=== PATIENT | male | born 1950 | race African-American/Black ===

== ENCOUNTER 2020-04-18 13:53 | Inpatient (IN) ==
[2020-04-18] MEDS ORDERED: NALOXONE 0.4 MG/ML VIAL ONE (14:00)
[2020-04-18 15:09] LABS: Basophils % 0.4 % (0.0-0.8); Eosinophils # 0.2 10*3/uL (0.0-0.87); Eosinophils % 4.1 % (0.00-10.9); Hematocrit 25.6 VOL% (42.0-52.0); Hemoglobin 8.3 GM/DL (14.0-18.0); Immature Granulocytes % 0.4 %; Immature Granulocytes Absolute 0.02 #; Lymphocytes # 1.6 10*3/uL (1.4-4.0); Lymphocytes % 29.3 % (21.2-54.2); Mean Corpuscular HGB Conc 32.4 GM/DL (32-36); Mean Corpuscular Volume 104.1 FL (87-102); Mean Platelet Volume 10.1 FL (9.6-12.0); Monocytes % 13.8 % (1.7-12.7); Platelet Count 129 T/CUMM (130-400); Red Blood Count 2.46 MC/CUMM (3.8-5.5); Red Cell Distribution Width 16.8 % (9.3-17.3); White Blood Count 5.4 T/CUMM (4-12)
[2020-04-18 15:28] LABS: Albumin 3.3 G/DL (3.4-5.0); Bilirubin,Total 0.4 MG/DL (0.2-1.0); Calcium 9.6 MG/DL (8.5-10.1); Osmolality,Calculated 277.8 MOS/KG (273-304); Total Protein 7.9 G/DL (6.4-8.3)
[2020-04-18 15:33] LABS: INR 1.1
[2020-04-18 15:40] LABS: Partial Thromboplastin Time 184.1 SECS (23.9-33.8)
[2020-04-18] MEDS ORDERED: GLUCAGON 1 MG VIAL IM PRN (16:42)
[2020-04-18] MEDS ORDERED: DEXTROSE 50% 25 GM/50 ML VIAL IV PRN (16:42)
[2020-04-18] MEDS ORDERED: ONDANSETRON 4 MG/2 ML VIAL IV PRN (16:42)
[2020-04-18] MEDS ORDERED: SODIUM CHLORIDE 0.9% 500 ML IV ONE (18:00)
[2020-04-18 19:06] LABS: Hematocrit 24.6 VOL% (42.0-52.0); Hemoglobin 7.9 GM/DL (14.0-18.0)
[2020-04-18] MEDS: TAMSULOSIN 0.4 MG CAPSULE PO SCH (21:50)
[2020-04-18] MEDS: METOPROLOL TARTRATE 25 MG TABLET PO SCH (21:52)
[2020-04-18 23:10] LABS: Hematocrit 22.4 VOL% (42.0-52.0); Hemoglobin 7.4 GM/DL (14.0-18.0)
[2020-04-19 06:00] LABS: Hematocrit 23.1 VOL% (42.0-52.0); Hemoglobin 7.7 GM/DL (14.0-18.0)
[2020-04-19 06:05] LABS: Basophils % 0.5 % (0.0-0.8); Eosinophils # 0.2 10*3/uL (0.0-0.87); Eosinophils % 4.3 % (0.00-10.9); Hematocrit 23.6 VOL% (42.0-52.0); Hemoglobin 7.6 GM/DL (14.0-18.0); Immature Granulocytes % 0.5 %; Immature Granulocytes Absolute 0.02 #; Lymphocytes # 1.4 10*3/uL (1.4-4.0); Mean Corpuscular HGB Conc 32.2 GM/DL (32-36); Mean Corpuscular Volume 104.4 FL (87-102); Mean Platelet Volume 10.5 FL (9.6-12.0); Neutrophils % 49.7 % (38.7-73.9); Platelet Count 125 T/CUMM (130-400); Red Blood Count 2.26 MC/CUMM (3.8-5.5); Red Cell Distribution Width 16.4 % (9.3-17.3); White Blood Count 4.4 T/CUMM (4-12)
[2020-04-19 06:30] LABS: INR 1.1; PT Patient Result 11.3 SECS (9.8-11.9)
[2020-04-19 06:40] LABS: Albumin 3.1 G/DL (3.4-5.0); Bilirubin,Total 1.1 MG/DL (0.2-1.0); Calcium 9.3 MG/DL (8.5-10.1); Osmolality,Calculated 278.8 MOS/KG (273-304); Risk Ratio 3.36; Thyroid Stimulating Hormone 0.629 uIU/ml (0.358-3.74); Total Protein 7.1 G/DL (6.4-8.3); VLDL CHOLESTEROL 23.4 MG/DL
[2020-04-19] MEDS: METOPROLOL TARTRATE 25 MG TABLET PO SCH ×2 (08:35→21:38)
[2020-04-19] MEDS: BICALUTAMIDE 50 MG TABLET PO SCH (09:42)
[2020-04-19] MEDS: PANTOPRAZOLE 40 MG VIAL IV SCH (09:42)
[2020-04-19] MEDS: SEVELAMER CARBONATE 800 MG TABLET PO SCH ×3 (09:43→16:04)
[2020-04-19 11:21] LABS: Hematocrit 22.2 VOL% (42.0-52.0); Hemoglobin 7.3 GM/DL (14.0-18.0)
[2020-04-19] MEDS ORDERED: SODIUM CHLORIDE 0.9% 1,000 ML IV PRN (12:04)
[2020-04-19] MEDS ORDERED: ACETAMINOPHEN 325 MG TABLET PO PRN (15:54)
[2020-04-19] MEDS: TAMSULOSIN 0.4 MG CAPSULE PO SCH (21:38)
[2020-04-20 05:44] LABS: Basophils % 0.4 % (0.0-0.8); Eosinophils # 0.2 10*3/uL (0.0-0.87); Eosinophils % 3.3 % (0.00-10.9); Hemoglobin 7.4 GM/DL (14.0-18.0); Immature Granulocytes % 0.2 %; Immature Granulocytes Absolute 0.01 #; Lymphocytes # 1.8 10*3/uL (1.4-4.0); Lymphocytes % 38.9 % (21.2-54.2); Mean Corpuscular HGB Conc 33.6 GM/DL (32-36); Mean Corpuscular Volume 101.9 FL (87-102); Mean Platelet Volume 10.2 FL (9.6-12.0); Monocytes % 13.3 % (1.7-12.7); Neutrophils % 43.9 % (38.7-73.9); Platelet Count 138 T/CUMM (130-400); Red Blood Count 2.16 MC/CUMM (3.8-5.5); Red Cell Distribution Width 15.9 % (9.3-17.3); White Blood Count 4.6 T/CUMM (4-12)
[2020-04-20 05:53] LABS: INR 1.1; PT Patient Result 11.9 SECS (9.8-11.9); Partial Thromboplastin Time 26.1 SECS (23.9-33.8)
[2020-04-20] MEDS ORDERED: SODIUM PHOSPHATE ENEMA 133 ML BOTTLE RECTAL ONE (06:00)
[2020-04-20 06:33] LABS: Calcium 9.1 MG/DL (8.5-10.1); Osmolality,Calculated 283.8 MOS/KG (273-304)
[2020-04-20] MEDS: SODIUM CHLORIDE 0.9% 1,000 ML IV SCH (08:00)
[2020-04-20] MEDS ORDERED: propofoL 200 MG/20 ML VIAL IV ONE (09:00)
[2020-04-20] MEDS ORDERED: LIDOCAINE 2% 5 ML VIAL ONE (09:00)
[2020-04-20] MEDS ORDERED: PHENYLEPHRINE 1 MG/10 ML SYRINGE IV ONE (09:00)
[2020-04-20] MEDS: PANTOPRAZOLE 40 MG VIAL IV SCH (10:08)
[2020-04-20] MEDS: SEVELAMER CARBONATE 800 MG TABLET PO SCH ×3 (10:09→17:23)
[2020-04-20] MEDS: BICALUTAMIDE 50 MG TABLET PO SCH (10:09)
[2020-04-20] MEDS: METOPROLOL TARTRATE 25 MG TABLET PO SCH ×2 (11:00→21:36)
[2020-04-20] MEDS: SUCRALFATE 1 GM/10 ML UDCUP RECTAL SCH ×2 (12:53→21:36)
[2020-04-20] MEDS ORDERED: HEPARIN 10,000 UNIT/10 ML VIAL IV PRN (14:05)
[2020-04-20 20:13] LABS: Hematocrit 29.7 VOL% (42.0-52.0); Hemoglobin 10.1 GM/DL (14.0-18.0)
[2020-04-20] MEDS: TAMSULOSIN 0.4 MG CAPSULE PO SCH (21:36)
[2020-04-21 04:53] LABS: Hematocrit 28.4 VOL% (42.0-52.0); Hemoglobin 9.6 GM/DL (14.0-18.0); Red Blood Count 2.87 MC/CUMM (3.8-5.5); White Blood Count 6.8 T/CUMM (4-12)
[2020-04-21 04:54] LABS: Basophils % 0.4 % (0.0-0.8); Eosinophils # 0.2 10*3/uL (0.0-0.87); Eosinophils % 2.4 % (0.00-10.9); Immature Granulocytes % 0.3 %; Immature Granulocytes Absolute 0.02 #; Lymphocytes # 1.4 10*3/uL (1.4-4.0); Lymphocytes % 20.9 % (21.2-54.2); Mean Corpuscular HGB Conc 33.8 GM/DL (32-36); Mean Platelet Volume 10.1 FL (9.6-12.0); Monocytes % 11.8 % (1.7-12.7); Neutrophils % 64.2 % (38.7-73.9); Platelet Count 126 T/CUMM (130-400); Red Cell Distribution Width 16.8 % (9.3-17.3)
[2020-04-21 05:18] LABS: Albumin 3.1 G/DL (3.4-5.0); Bilirubin,Total 0.9 MG/DL (0.2-1.0); Calcium 9.6 MG/DL (8.5-10.1); Osmolality,Calculated 280.5 MOS/KG (273-304); Total Protein 7.4 G/DL (6.4-8.3)
[2020-04-21 05:19] LABS: Hypochromasia 1+; Microcytosis 1+; Platelet Estimate Normal
[2020-04-21 06:05] LABS: INR 1.1; PT Patient Result 11.9 SECS (9.8-11.9); Partial Thromboplastin Time 28.5 SECS (23.9-33.8)
[2020-04-21] MEDS: PANTOPRAZOLE 40 MG VIAL IV SCH (09:17)
[2020-04-21] MEDS: METOPROLOL TARTRATE 25 MG TABLET PO SCH (09:18)
[2020-04-21] MEDS: BICALUTAMIDE 50 MG TABLET PO SCH (09:18)
[2020-04-21] MEDS: SEVELAMER CARBONATE 800 MG TABLET PO SCH ×2 (09:18→11:53)
[2020-04-21] MEDS: SUCRALFATE 1 GM/10 ML UDCUP RECTAL SCH (09:21)
[2020-04-21 11:40] VITALS: BP 100/68
[2020-04-21] MEDS: SODIUM CHLORIDE 0.9% 1,000 ML IV SCH ×3 (13:01→13:02)
== END 2020-04-21 13:10 | disposition home or self-care (01) | DRG 377 ==
LOC: EDBD → EDUNIT# → N.EDINP 13:53 → N.ED 13:53 → N.3E 17:31
PROVIDERS: ADMIT Internal Medicine; ATTEND Internal Medicine

== ENCOUNTER 2020-05-14 19:02 | Observation (INO) ==
[2020-05-14] MEDS ORDERED: PANTOPRAZOLE 40 MG VIAL IV STA (20:02)
[2020-05-14] MEDS ORDERED: ONDANSETRON 4 MG/2 ML VIAL IV STA (20:02)
[2020-05-14 20:18] LABS: Basophils % 0.7 % (0.0-0.8); Eosinophils # 0.2 10*3/uL (0.0-0.87); Eosinophils % 2.7 % (0.00-10.9); Hematocrit 26.2 VOL% (42.0-52.0); Immature Granulocytes % 0.3 %; Immature Granulocytes Absolute 0.02 #; Lymphocytes # 1.8 10*3/uL (1.4-4.0); Lymphocytes % 30.5 % (21.2-54.2); Mean Corpuscular HGB Conc 30.5 GM/DL (32-36); Mean Corpuscular Volume 102.7 FL (87-102); Monocytes % 9.9 % (1.7-12.7); Neutrophils % 55.9 % (38.7-73.9); Platelet Count 169 T/CUMM (130-400); Red Blood Count 2.55 MC/CUMM (3.8-5.5); Red Cell Distribution Width 16.1 % (9.3-17.3); White Blood Count 5.9 T/CUMM (4-12)
[2020-05-14 20:40] LABS: INR 1.1; PT Patient Result 11.8 SECS (9.8-11.9)
[2020-05-14 20:41] LABS: Bilirubin,Total 0.5 MG/DL (0.2-1.0); Calcium 9.2 MG/DL (8.5-10.1); Osmolality,Calculated 275.5 MOS/KG (273-304); Total Protein 7.5 G/DL (6.4-8.3)
[2020-05-14] MEDS ORDERED: ACETAMINOPHEN 325 MG TABLET PO PRN (23:27)
[2020-05-14] MEDS ORDERED: ONDANSETRON 4 MG/2 ML VIAL IV PRN (23:27)
[2020-05-15 01:58] LABS: Hematocrit 25.8 VOL% (42.0-52.0); Hemoglobin 7.9 GM/DL (14.0-18.0)
[2020-05-15 04:34] LABS: Basophils % 0.4 % (0.0-0.8); Eosinophils # 0.2 10*3/uL (0.0-0.87); Eosinophils % 3.8 % (0.00-10.9); Hematocrit 25.8 VOL% (42.0-52.0); Hemoglobin 7.9 GM/DL (14.0-18.0); Immature Granulocytes % 0.2 %; Immature Granulocytes Absolute 0.01 #; Lymphocytes # 1.3 10*3/uL (1.4-4.0); Lymphocytes % 29.5 % (21.2-54.2); Mean Corpuscular HGB Conc 30.6 GM/DL (32-36); Mean Corpuscular Volume 103.2 FL (87-102); Mean Platelet Volume 9.5 FL (9.6-12.0); Monocytes % 11.5 % (1.7-12.7); Neutrophils % 54.6 % (38.7-73.9); Platelet Count 150 T/CUMM (130-400); Red Cell Distribution Width 15.9 % (9.3-17.3); White Blood Count 4.5 T/CUMM (4-12)
[2020-05-15 04:35] LABS: Hematocrit 25.2 VOL% (42.0-52.0); Hemoglobin 7.8 GM/DL (14.0-18.0)
[2020-05-15 04:53] LABS: Calcium 8.6 MG/DL (8.5-10.1); Osmolality,Calculated 278.4 MOS/KG (273-304)
[2020-05-15 08:54] LABS: Basophils % 0.6 % (0.0-0.8); Eosinophils # 0.2 10*3/uL (0.0-0.87); Hematocrit 29.2 VOL% (42.0-52.0); Hemoglobin 8.8 GM/DL (14.0-18.0); Immature Granulocytes % 0.4 %; Immature Granulocytes Absolute 0.02 #; Lymphocytes # 1.6 10*3/uL (1.4-4.0); Lymphocytes % 32.6 % (21.2-54.2); Mean Corpuscular HGB Conc 30.1 GM/DL (32-36); Mean Corpuscular Volume 104.3 FL (87-102); Mean Platelet Volume 9.4 FL (9.6-12.0); Monocytes % 10.7 % (1.7-12.7); Neutrophils % 52.7 % (38.7-73.9); Platelet Count 181 T/CUMM (130-400); Red Cell Distribution Width 15.8 % (9.3-17.3)
[2020-05-15 09:13] LABS: Calcium 9.6 MG/DL (8.5-10.1); Osmolality,Calculated 273.8 MOS/KG (273-304)
[2020-05-15 11:34] LABS: Hematocrit 27.3 VOL% (42.0-52.0); Hemoglobin 8.2 GM/DL (14.0-18.0)
[2020-05-15 17:11] LABS: Hematocrit 25.2 VOL% (42.0-52.0); Hemoglobin 7.9 GM/DL (14.0-18.0)
[2020-05-16 04:52] LABS: Basophils % 0.5 % (0.0-0.8); Eosinophils # 0.2 10*3/uL (0.0-0.87); Hematocrit 25.3 VOL% (42.0-52.0); Hemoglobin 7.8 GM/DL (14.0-18.0); Immature Granulocytes % 0.2 %; Immature Granulocytes Absolute 0.01 #; Lymphocytes # 1.4 10*3/uL (1.4-4.0); Lymphocytes % 31.9 % (21.2-54.2); Mean Corpuscular HGB Conc 30.8 GM/DL (32-36); Mean Corpuscular Volume 100.8 FL (87-102); Mean Platelet Volume 9.6 FL (9.6-12.0); Monocytes % 13.1 % (1.7-12.7); Neutrophils % 50.3 % (38.7-73.9); Platelet Count 171 T/CUMM (130-400); Red Blood Count 2.51 MC/CUMM (3.8-5.5); Red Cell Distribution Width 15.1 % (9.3-17.3); White Blood Count 4.3 T/CUMM (4-12)
[2020-05-16 05:28] LABS: Calcium 8.8 MG/DL (8.5-10.1); Osmolality,Calculated 280.4 MOS/KG (273-304)
[2020-05-16] MEDS ORDERED: SODIUM PHOSPHATE ENEMA 133 ML BOTTLE RECTAL ONE (06:00)
[2020-05-16] MEDS ORDERED: SODIUM CHLORIDE 0.9% 1,000 ML IV SCH (08:00)
[2020-05-16] MEDS ORDERED: LIDOCAINE 2% 5 ML VIAL ONE (09:00)
[2020-05-16] MEDS ORDERED: propofoL 200 MG/20 ML VIAL IV ONE (09:00)
[2020-05-16 09:55] VITALS: BP 127/86
[2020-05-16] MEDS: SUCRALFATE 1 GM/10 ML UDCUP RECTAL SCH ×2 (11:47→20:48)
[2020-05-17 04:36] LABS: Basophils % 0.4 % (0.0-0.8); Eosinophils # 0.2 10*3/uL (0.0-0.87); Eosinophils % 2.8 % (0.00-10.9); Hematocrit 26.2 VOL% (42.0-52.0); Hemoglobin 8.1 GM/DL (14.0-18.0); Immature Granulocytes % 0.2 %; Immature Granulocytes Absolute 0.01 #; Lymphocytes # 1.6 10*3/uL (1.4-4.0); Lymphocytes % 30.8 % (21.2-54.2); Mean Corpuscular HGB Conc 30.9 GM/DL (32-36); Mean Corpuscular Volume 101.2 FL (87-102); Mean Platelet Volume 9.6 FL (9.6-12.0); Monocytes % 12.1 % (1.7-12.7); Neutrophils % 53.7 % (38.7-73.9); Platelet Count 144 T/CUMM (130-400); Red Blood Count 2.59 MC/CUMM (3.8-5.5); Red Cell Distribution Width 15.1 % (9.3-17.3); White Blood Count 5.3 T/CUMM (4-12)
[2020-05-17 05:17] LABS: Calcium 8.8 MG/DL (8.5-10.1); Osmolality,Calculated 283.1 MOS/KG (273-304)
== END 2020-05-17 11:25 | disposition home or self-care (01) ==
LOC: EDBD → EDUNIT# → N.EDINP 19:02 → N.ED 19:02 → N.CC 23:48
PROVIDERS: ADMIT Family Medicine; ATTEND Family Medicine
PROC: COLONHP (2020-05-16 08:05)

== ENCOUNTER 2020-09-01 10:15 | Inpatient (IN) ==
[2020-09-01] MEDS ORDERED: ACETAMINOPHEN 500 MG TABLET ONE (10:48)
[2020-09-01] MEDS ORDERED: SODIUM CHLORIDE 0.9% 500 ML IV STA (10:48)
[2020-09-01] MEDS ORDERED: ACETAMINOPHEN 500 MG TABLET PO STA (10:53)
[2020-09-01 10:57] LABS: Basophils % 0.1 % (0.0-0.8); Hematocrit 35.6 VOL% (42.0-52.0); Hemoglobin 11.3 GM/DL (14.0-18.0); Immature Granulocytes % 0.6 %; Immature Granulocytes Absolute 0.06 #; Lymphocytes % 10.7 % (21.2-54.2); Mean Corpuscular HGB Conc 31.7 GM/DL (32-36); Mean Corpuscular Volume 93.9 FL (87-102); Mean Platelet Volume 9.9 FL (9.6-12.0); Monocytes % 6.1 % (1.7-12.7); Neutrophils % 82.5 % (38.7-73.9); Platelet Count 153 T/CUMM (130-400); Red Blood Count 3.79 MC/CUMM (3.8-5.5); Red Cell Distribution Width 16.1 % (9.3-17.3); White Blood Count 9.5 T/CUMM (4-12)
[2020-09-01 11:24] LABS: Alanine Aminotransferase 28 U/L (16-61); Albumin 3.3 G/DL (3.4-5.0); Alkaline Phosphatase 66 U/L (45-117); Aspartate Amino Transferase 48 U/L (0-37); Blood Urea Nitrogen 52 MG/DL (7-18); Carbon Dioxide 22 MMOL/L (21-32); Estimated Glom Filtration Rate 3 ML/MIN; Glucose 84 MG/DL (74-106); Potassium 4.9 MMOL/L (3.5-5.1); Sodium 136 MMOL/L (136-145)
[2020-09-01] MEDS ORDERED: cefTRIAXone 1,000 MG in SODIUM CHLORIDE 0.9% 100 ML IV STA (12:19)
[2020-09-01] MEDS ORDERED: ONDANSETRON 4 MG/2 ML VIAL IV PRN (12:20)
[2020-09-01] MEDS: cefTRIAXone 1,000 MG in SYRINGE 1 EACH IV SCH (15:21)
[2020-09-01] MEDS: DOCUSATE SODIUM 100 MG CAPSULE PO SCH (21:28)
[2020-09-02] MEDS: LORazepam 2 MG/1 ML VIAL IV PRN ×3 (02:00→23:47)
[2020-09-02] MEDS: PANTOPRAZOLE 40 MG TABLET PO SCH (08:31)
[2020-09-02] MEDS: DOCUSATE SODIUM 100 MG CAPSULE PO SCH ×2 (08:31→20:10)
[2020-09-02] MEDS: amLODIPine 5 MG TABLET PO SCH (08:31)
[2020-09-02] MEDS: SODIUM CHLORIDE 0.9% 1,000 ML IV SCH ×2 (10:04→12:10)
[2020-09-02] MEDS ORDERED: VANCOMYCIN INJ 500 MG in SODIUM CHLORIDE 0.9% 100 ML IV PRN (12:35)
[2020-09-02] MEDS: cefTRIAXone 1,000 MG in SYRINGE 1 EACH IV SCH (12:50)
[2020-09-02] MEDS ORDERED: VANCOMYCIN INJ 1,500 MG in SODIUM CHLORIDE 0.9% 500 ML IV ONE (14:00)
[2020-09-02 15:16] LABS: Osmolality,Calculated 288.2 MOS/KG (273-304); Potassium 5.8 MMOL/L (3.5-5.1)
[2020-09-02] MEDS: ACETAMINOPHEN 325 MG TABLET PO PRN (16:05)
[2020-09-02] MEDS ORDERED: SODIUM POLYSTYRENE SULFATE 15 GM/60 ML BOTTLE PO ONE (17:00)
[2020-09-03] MEDS: amLODIPine 5 MG TABLET PO SCH (08:10)
[2020-09-03] MEDS: DOCUSATE SODIUM 100 MG CAPSULE PO SCH ×2 (08:10→21:13)
[2020-09-03] MEDS: PANTOPRAZOLE 40 MG TABLET PO SCH (08:11)
[2020-09-03] MEDS: cefTRIAXone 1,000 MG in SYRINGE 1 EACH IV SCH (12:16)
[2020-09-03] MEDS ORDERED: HEPARIN 10,000 UNIT/10 ML VIAL IV SCH (15:00)
[2020-09-03] MEDS ORDERED: VANCOMYCIN INJ 500 MG in SODIUM CHLORIDE 0.9% 100 ML IV ONE (17:00)
[2020-09-03] MEDS: SODIUM CHLORIDE 0.9% 1,000 ML IV SCH (21:12)
[2020-09-03] MEDS: ACETAMINOPHEN 325 MG TABLET PO PRN (21:13)
[2020-09-04] MEDS: METOPROLOL TARTRATE 25 MG TABLET PO SCH ×3 (00:29→22:23)
[2020-09-04 06:15] LABS: Basophils % 0.3 % (0.0-0.8); Eosinophils # 0.2 10*3/uL (0.0-0.87); Eosinophils % 2.3 % (0.00-10.9); Hemoglobin 11.6 GM/DL (14.0-18.0); Immature Granulocytes % 0.7 %; Immature Granulocytes Absolute 0.05 #; Lymphocytes # 1.1 10*3/uL (1.4-4.0); Lymphocytes % 15.7 % (21.2-54.2); Mean Corpuscular HGB Conc 32.2 GM/DL (32-36); Mean Corpuscular Volume 90.9 FL (87-102); Monocytes % 10.2 % (1.7-12.7); Neutrophils % 70.8 % (38.7-73.9); Platelet Count 125 T/CUMM (130-400); Red Blood Count 3.96 MC/CUMM (3.8-5.5); White Blood Count 7.1 T/CUMM (4-12)
[2020-09-04 06:35] LABS: Lymphocytes 12 % (20-55); Segmented Neutrophils 75 % (50-85); Total Cells Counted 100
[2020-09-04 06:47] LABS: Albumin 2.7 G/DL (3.4-5.0); Bilirubin,Total 0.4 MG/DL (0.2-1.0); Osmolality,Calculated 280.5 MOS/KG (273-304); Potassium 5.2 MMOL/L (3.5-5.1); Total Protein 8.5 G/DL (6.4-8.3)
[2020-09-04] MEDS: SODIUM CHLORIDE 0.9% 1,000 ML IV SCH (07:20)
[2020-09-04] MEDS: PANTOPRAZOLE 40 MG TABLET PO SCH (10:38)
[2020-09-04] MEDS: traMADol 50 MG TABLET PO SCH ×2 (10:38→22:23)
[2020-09-04] MEDS: DOCUSATE SODIUM 100 MG CAPSULE PO SCH ×2 (10:39→22:23)
[2020-09-04] MEDS: SEVELAMER CARBONATE 800 MG TABLET PO SCH ×3 (10:39→16:10)
[2020-09-04] MEDS: amLODIPine 5 MG TABLET PO SCH (10:39)
[2020-09-04] MEDS: ACETAMINOPHEN 325 MG TABLET PO PRN (22:23)
[2020-09-05] MEDS: ACETAMINOPHEN 325 MG TABLET PO PRN (04:59)
[2020-09-05] MEDS: traMADol 50 MG TABLET PO SCH ×3 (05:00→22:40)
[2020-09-05 06:00] LABS: Basophils % 0.3 % (0.0-0.8); Eosinophils # 0.2 10*3/uL (0.0-0.87); Eosinophils % 2.4 % (0.00-10.9); Hematocrit 31.8 VOL% (42.0-52.0); Hemoglobin 10.6 GM/DL (14.0-18.0); Immature Granulocytes % 1.3 %; Immature Granulocytes Absolute 0.09 #; Lymphocytes % 14.4 % (21.2-54.2); Mean Corpuscular HGB Conc 33.3 GM/DL (32-36); Mean Corpuscular Volume 88.8 FL (87-102); Mean Platelet Volume 10.7 FL (9.6-12.0); Monocytes % 10.9 % (1.7-12.7); Neutrophils % 70.7 % (38.7-73.9); Platelet Count 146 T/CUMM (130-400); Red Blood Count 3.58 MC/CUMM (3.8-5.5); White Blood Count 7.1 T/CUMM (4-12)
[2020-09-05] MEDS ORDERED: LIDOCAINE 1% 20 ML VIAL ONE (06:21)
[2020-09-05] MEDS ORDERED: BUPIVACAINE MPF 0.25% 30 ML VIAL ONE (06:21)
[2020-09-05] MEDS ORDERED: LIDOCAINE 2%/EPI 20 ML VIAL ONE (06:21)
[2020-09-05 06:24] LABS: Albumin 2.6 G/DL (3.4-5.0); Bilirubin,Total 0.5 MG/DL (0.2-1.0); Osmolality,Calculated 291.1 MOS/KG (273-304); Potassium 5.2 MMOL/L (3.5-5.1); Uric Acid 8.2 MG/DL (3.5-7.2)
[2020-09-05] MEDS ORDERED: LIDOCAINE 2% 5 ML VIAL ONE (06:42)
[2020-09-05] MEDS ORDERED: ETOMIDATE 40 MG/20 ML VIAL IV ONE (06:42)
[2020-09-05] MEDS ORDERED: fentaNYL 100 MCG/2 ML VIAL ONE (06:42)
[2020-09-05] MEDS ORDERED: MIDAZOLAM 2 MG/2 ML VIAL ONE (06:42)
[2020-09-05] MEDS ORDERED: KETAMINE 500 MG/10 ML VIAL ONE (06:42)
[2020-09-05] MEDS ORDERED: PHENYLEPHRINE 1 MG/10 ML SYRINGE IV ONE (06:43)
[2020-09-05] MEDS ORDERED: DEXMEDETOMIDINE 200 MCG/2 ML VIAL ONE (07:34)
[2020-09-05] MEDS: METOPROLOL TARTRATE 25 MG TABLET PO SCH ×2 (10:14→22:52)
[2020-09-05] MEDS: amLODIPine 5 MG TABLET PO SCH (10:14)
[2020-09-05] MEDS: DOCUSATE SODIUM 100 MG CAPSULE PO SCH ×2 (10:14→22:38)
[2020-09-05] MEDS: SEVELAMER CARBONATE 800 MG TABLET PO SCH ×4 (10:14→19:28)
[2020-09-05] MEDS: PANTOPRAZOLE 40 MG TABLET PO SCH (10:15)
[2020-09-05 14:13] LABS: Hepatitis B Core IgM Quant 0.07 Index; Hepatitis B Surface Ag Quant < 0.10 Index; Hepatitis B Surface Ag Result Negative (Negative); Hepatitis C Virus Ab Quant > 11.00 Index; Hepatitis C Virus Ab Result Positive (Negative)
[2020-09-05] MEDS ORDERED: VANCOMYCIN INJ 500 MG in SODIUM CHLORIDE 0.9% 100 ML IV ONE (17:00)
[2020-09-06 05:21] LABS: Basophils % 0.6 % (0.0-0.8); Eosinophils # 0.1 10*3/uL (0.0-0.87); Eosinophils % 1.5 % (0.00-10.9); Hematocrit 34.6 VOL% (42.0-52.0); Hemoglobin 11.1 GM/DL (14.0-18.0); Immature Granulocytes % 1.9 %; Immature Granulocytes Absolute 0.13 #; Lymphocytes # 1.1 10*3/uL (1.4-4.0); Lymphocytes % 16.6 % (21.2-54.2); Mean Corpuscular HGB Conc 32.1 GM/DL (32-36); Mean Platelet Volume 10.9 FL (9.6-12.0); Monocytes % 12.3 % (1.7-12.7); Neutrophils % 67.1 % (38.7-73.9); Platelet Count 154 T/CUMM (130-400); Red Blood Count 3.76 MC/CUMM (3.8-5.5); Red Cell Distribution Width 16.4 % (9.3-17.3); White Blood Count 6.8 T/CUMM (4-12)
[2020-09-06 05:48] LABS: Eosinophils 1 % (0-10); Hypochromasia 1+; Lymphocytes 16 % (20-55); Microcytosis 1+; Platelet Estimate Adequate; Segmented Neutrophils 73 % (50-85); Total Cells Counted 100
[2020-09-06 05:49] LABS: Calcium 9.1 MG/DL (8.5-10.1); Osmolality,Calculated 282.2 MOS/KG (273-304); Potassium 4.8 MMOL/L (3.5-5.1)
[2020-09-06] MEDS: METOPROLOL TARTRATE 25 MG TABLET PO SCH ×2 (08:54→22:49)
[2020-09-06] MEDS: DOCUSATE SODIUM 100 MG CAPSULE PO SCH ×2 (08:54→22:47)
[2020-09-06] MEDS: SEVELAMER CARBONATE 800 MG TABLET PO SCH ×2 (08:54→13:14)
[2020-09-06] MEDS: allopurinoL 100 MG TABLET PO SCH (08:55)
[2020-09-06] MEDS: traMADol 50 MG TABLET PO SCH (08:55)
[2020-09-06] MEDS: PANTOPRAZOLE 40 MG TABLET PO SCH (08:55)
[2020-09-06] MEDS: LORazepam 2 MG/1 ML VIAL IV PRN (08:55)
[2020-09-06] MEDS: oxyCODONE/ACETAMINOPHEN 5-325 MG TABLET PO SCH ×2 (13:14→22:47)
[2020-09-06] MEDS: GABAPENTIN 100 MG CAPSULE PO SCH (22:47)
[2020-09-07] MEDS: oxyCODONE/ACETAMINOPHEN 5-325 MG TABLET PO SCH ×3 (04:30→21:47)
[2020-09-07] MEDS: ACETAMINOPHEN 325 MG TABLET PO PRN ×3 (04:30→16:40)
[2020-09-07 06:29] LABS: Calcium 9.3 MG/DL (8.5-10.1); Osmolality,Calculated 292.1 MOS/KG (273-304); Potassium 5.5 MMOL/L (3.5-5.1)
[2020-09-07] MEDS: SEVELAMER CARBONATE 800 MG TABLET PO SCH ×4 (08:14→16:40)
[2020-09-07] MEDS ORDERED: VANCOMYCIN INJ 1,000 MG in SODIUM CHLORIDE 0.9% 100 ML IV PRN (09:14)
[2020-09-07] MEDS: DOCUSATE SODIUM 100 MG CAPSULE PO SCH ×2 (10:00→21:48)
[2020-09-07] MEDS: allopurinoL 100 MG TABLET PO SCH (10:00)
[2020-09-07] MEDS: PANTOPRAZOLE 40 MG TABLET PO SCH (10:00)
[2020-09-07] MEDS: METOPROLOL TARTRATE 25 MG TABLET PO SCH ×2 (10:28→21:48)
[2020-09-07] MEDS: GABAPENTIN 100 MG CAPSULE PO SCH (21:48)
[2020-09-07] MEDS: CARBOXYMETHYLCELLULOSE 1% OPH SOLN BOTH EYES SCH (21:48)
[2020-09-08] MEDS: oxyCODONE/ACETAMINOPHEN 5-325 MG TABLET PO SCH ×3 (04:35→21:41)
[2020-09-08] MEDS: SEVELAMER CARBONATE 800 MG TABLET PO SCH ×3 (09:40→17:18)
[2020-09-08] MEDS: DOCUSATE SODIUM 100 MG CAPSULE PO SCH ×2 (09:40→21:43)
[2020-09-08] MEDS: ACETAMINOPHEN 325 MG TABLET PO PRN (09:40)
[2020-09-08] MEDS: PANTOPRAZOLE 40 MG TABLET PO SCH (09:40)
[2020-09-08] MEDS: CARBOXYMETHYLCELLULOSE 1% OPH SOLN BOTH EYES SCH ×4 (09:40→21:43)
[2020-09-08] MEDS: allopurinoL 100 MG TABLET PO SCH (09:40)
[2020-09-08] MEDS: METOPROLOL TARTRATE 25 MG TABLET PO SCH ×2 (10:03→21:42)
[2020-09-08] MEDS ORDERED: GLUCAGON 1 MG VIAL IM PRN (14:58)
[2020-09-08] MEDS ORDERED: DEXTROSE 50% 25 GM/50 ML VIAL IV PRN (14:58)
[2020-09-08] MEDS ORDERED: POLYETHYLENE GLYCOL POWDER 17 GM PACK PO PRN (15:12)
[2020-09-08] MEDS ORDERED: LORazepam 2 MG/1 ML VIAL IV PRN (15:46)
[2020-09-08] MEDS ORDERED: INSULIN REGULAR 100 UNIT/ML SUBCUT SCH (16:30)
[2020-09-08 17:08] LABS: Calcium 9.6 MG/DL (8.5-10.1); Osmolality,Calculated 284.2 MOS/KG (273-304); Potassium 5.3 MMOL/L (3.5-5.1)
[2020-09-08] MEDS: methylPREDNISolone SOD SUC 40 MG/1 ML VIAL IV SCH (17:18)
[2020-09-08] MEDS: GABAPENTIN 100 MG CAPSULE PO SCH (21:43)
[2020-09-09] MEDS: oxyCODONE/ACETAMINOPHEN 5-325 MG TABLET PO SCH ×3 (04:42→20:33)
[2020-09-09] MEDS: methylPREDNISolone SOD SUC 40 MG/1 ML VIAL IV SCH ×2 (04:42→15:29)
[2020-09-09 06:29] LABS: Basophils % 0.2 % (0.0-0.8); Eosinophils % 0.1 % (0.00-10.9); Hematocrit 34.2 VOL% (42.0-52.0); Hemoglobin 11.3 GM/DL (14.0-18.0); Immature Granulocytes % 1.6 %; Lymphocytes # 3.3 10*3/uL (1.4-4.0); Lymphocytes % 26.2 % (21.2-54.2); Mean Corpuscular Volume 88.6 FL (87-102); Mean Platelet Volume 11.7 FL (9.6-12.0); Monocytes % 8.1 % (1.7-12.7); Neutrophils % 63.8 % (38.7-73.9); Platelet Count 252 T/CUMM (130-400); Red Blood Count 3.86 MC/CUMM (3.8-5.5); White Blood Count 12.6 T/CUMM (4-12)
[2020-09-09 09:23] LABS: Calcium 9.6 MG/DL (8.5-10.1); Osmolality,Calculated 289.4 MOS/KG (273-304); Potassium 5.7 MMOL/L (3.5-5.1)
[2020-09-09] MEDS: CARBOXYMETHYLCELLULOSE 1% OPH SOLN BOTH EYES SCH ×4 (09:42→20:33)
[2020-09-09] MEDS: PANTOPRAZOLE 40 MG TABLET PO SCH (09:42)
[2020-09-09] MEDS: ASPIRIN EC 81 MG TABLET PO SCH (09:42)
[2020-09-09] MEDS: DOCUSATE SODIUM 100 MG CAPSULE PO SCH ×2 (09:42→20:33)
[2020-09-09] MEDS: allopurinoL 100 MG TABLET PO SCH (09:42)
[2020-09-09] MEDS: SEVELAMER CARBONATE 800 MG TABLET PO SCH ×3 (09:42→17:06)
[2020-09-09] MEDS: METOPROLOL TARTRATE 25 MG TABLET PO SCH ×2 (09:46→20:33)
[2020-09-09] MEDS: GABAPENTIN 100 MG CAPSULE PO SCH (20:33)
[2020-09-10] MEDS: oxyCODONE/ACETAMINOPHEN 5-325 MG TABLET PO SCH ×3 (03:24→22:39)
[2020-09-10] MEDS: methylPREDNISolone SOD SUC 40 MG/1 ML VIAL IV SCH ×2 (03:24→15:43)
[2020-09-10 04:01] LABS: Basophils % 0.2 % (0.0-0.8); Hematocrit 33.9 VOL% (42.0-52.0); Hemoglobin 10.6 GM/DL (14.0-18.0); Immature Granulocytes % 1.2 %; Lymphocytes # 1.2 10*3/uL (1.4-4.0); Lymphocytes % 13.9 % (21.2-54.2); Mean Corpuscular HGB Conc 31.3 GM/DL (32-36); Mean Corpuscular Volume 90.6 FL (87-102); Mean Platelet Volume 11.4 FL (9.6-12.0); Monocytes % 6.5 % (1.7-12.7); Neutrophils % 78.2 % (38.7-73.9); Platelet Count 236 T/CUMM (130-400); Red Blood Count 3.74 MC/CUMM (3.8-5.5); Red Cell Distribution Width 17.3 % (9.3-17.3); White Blood Count 8.6 T/CUMM (4-12)
[2020-09-10 04:40] LABS: Calcium 9.4 MG/DL (8.5-10.1); Osmolality,Calculated 295.7 MOS/KG (273-304)
[2020-09-10 04:47] LABS: Potassium 6.5 MMOL/L (3.5-5.1)
[2020-09-10] MEDS ORDERED: SODIUM POLYSTYRENE SULFATE 15 GM/60 ML BOTTLE PO ONE (05:45)
[2020-09-10] MEDS ORDERED: LIDOCAINE/PRILOCAINE CREAM 5 GM TUBE TOP ONE (07:11)
[2020-09-10] MEDS: SEVELAMER CARBONATE 800 MG TABLET PO SCH ×3 (08:03→16:57)
[2020-09-10] MEDS: DOCUSATE SODIUM 100 MG CAPSULE PO SCH ×2 (08:04→22:39)
[2020-09-10] MEDS: allopurinoL 100 MG TABLET PO SCH (08:04)
[2020-09-10] MEDS: ACETAMINOPHEN 325 MG TABLET PO PRN (08:04)
[2020-09-10] MEDS: METOPROLOL TARTRATE 25 MG TABLET PO SCH ×2 (08:04→22:39)
[2020-09-10] MEDS: ASPIRIN EC 81 MG TABLET PO SCH (08:04)
[2020-09-10] MEDS: PANTOPRAZOLE 40 MG TABLET PO SCH (08:04)
[2020-09-10] MEDS: CARBOXYMETHYLCELLULOSE 1% OPH SOLN BOTH EYES SCH ×4 (08:05→22:40)
[2020-09-10] MEDS ORDERED: VANCOMYCIN INJ 500 MG in SODIUM CHLORIDE 0.9% 100 ML IV ONE (21:00)
[2020-09-10] MEDS: ZINC OXIDE PASTE 113 GM TUBE TOP SCH (22:39)
[2020-09-10] MEDS: GABAPENTIN 100 MG CAPSULE PO SCH (22:39)
[2020-09-11] MEDS: oxyCODONE/ACETAMINOPHEN 5-325 MG TABLET PO SCH ×3 (03:54→16:26)
[2020-09-11] MEDS: methylPREDNISolone SOD SUC 40 MG/1 ML VIAL IV SCH ×2 (03:55→17:03)
[2020-09-11 05:41] LABS: Calcium 9.3 MG/DL (8.5-10.1); Osmolality,Calculated 294.2 MOS/KG (273-304)
[2020-09-11] MEDS: PANTOPRAZOLE 40 MG TABLET PO SCH (08:29)
[2020-09-11] MEDS: allopurinoL 100 MG TABLET PO SCH (08:29)
[2020-09-11] MEDS: DOCUSATE SODIUM 100 MG CAPSULE PO SCH ×2 (08:29→21:13)
[2020-09-11] MEDS: ASPIRIN EC 81 MG TABLET PO SCH (08:29)
[2020-09-11] MEDS: SEVELAMER CARBONATE 800 MG TABLET PO SCH ×3 (08:30→17:04)
[2020-09-11] MEDS: CARBOXYMETHYLCELLULOSE 1% OPH SOLN BOTH EYES SCH ×4 (08:30→21:14)
[2020-09-11] MEDS: ACETAMINOPHEN 325 MG TABLET PO PRN ×2 (08:30→21:14)
[2020-09-11] MEDS: ZINC OXIDE PASTE 113 GM TUBE TOP SCH ×2 (09:43→21:13)
[2020-09-11] MEDS: METOPROLOL TARTRATE 25 MG TABLET PO SCH ×2 (10:26→21:13)
[2020-09-11] MEDS ORDERED: oxyCODONE/ACETAMINOPHEN 5-325 MG TABLET PO PRN (18:54)
[2020-09-11] MEDS: GABAPENTIN 100 MG CAPSULE PO SCH (21:14)
[2020-09-12] MEDS: methylPREDNISolone SOD SUC 40 MG/1 ML VIAL IV SCH ×2 (05:45→16:19)
[2020-09-12 06:59] LABS: Calcium 8.9 MG/DL (8.5-10.1); Osmolality,Calculated 304.1 MOS/KG (273-304); Potassium 4.9 MMOL/L (3.5-5.1)
[2020-09-12] MEDS: PANTOPRAZOLE 40 MG TABLET PO SCH (09:22)
[2020-09-12] MEDS: ZINC OXIDE PASTE 113 GM TUBE TOP SCH ×2 (09:22→21:50)
[2020-09-12] MEDS: DOCUSATE SODIUM 100 MG CAPSULE PO SCH ×2 (09:22→21:50)
[2020-09-12] MEDS: ASPIRIN EC 81 MG TABLET PO SCH (09:22)
[2020-09-12] MEDS: CARBOXYMETHYLCELLULOSE 1% OPH SOLN BOTH EYES SCH ×4 (09:22→21:50)
[2020-09-12] MEDS: METOPROLOL TARTRATE 25 MG TABLET PO SCH ×2 (09:22→21:50)
[2020-09-12] MEDS: allopurinoL 100 MG TABLET PO SCH (09:22)
[2020-09-12] MEDS: SEVELAMER CARBONATE 800 MG TABLET PO SCH ×3 (09:22→16:19)
[2020-09-12] MEDS: CEFTAROLINE 200 MG in SODIUM CHLORIDE 0.9% 100 ML IV SCH ×2 (16:19→21:50)
[2020-09-12] MEDS ORDERED: VANCOMYCIN INJ 500 MG in SODIUM CHLORIDE 0.9% 100 ML IV ONE (17:00)
[2020-09-12] MEDS: GABAPENTIN 100 MG CAPSULE PO SCH (21:50)
[2020-09-12] MEDS: ACETAMINOPHEN 325 MG TABLET PO PRN (21:50)
[2020-09-13] MEDS: methylPREDNISolone SOD SUC 40 MG/1 ML VIAL IV SCH ×2 (04:12→17:58)
[2020-09-13 06:03] LABS: Basophils % 0.2 % (0.0-0.8); Hematocrit 30.3 VOL% (42.0-52.0); Hemoglobin 9.6 GM/DL (14.0-18.0); Immature Granulocytes % 2.1 %; Immature Granulocytes Absolute 0.25 #; Lymphocytes # 1.3 10*3/uL (1.4-4.0); Lymphocytes % 11.2 % (21.2-54.2); Mean Corpuscular HGB Conc 31.7 GM/DL (32-36); Mean Platelet Volume 11.3 FL (9.6-12.0); Monocytes % 3.8 % (1.7-12.7); Neutrophils % 82.7 % (38.7-73.9); Platelet Count 278 T/CUMM (130-400); Red Blood Count 3.33 MC/CUMM (3.8-5.5); Red Cell Distribution Width 17.2 % (9.3-17.3); White Blood Count 11.9 T/CUMM (4-12)
[2020-09-13] MEDS: CEFTAROLINE 200 MG in SODIUM CHLORIDE 0.9% 100 ML IV SCH ×2 (06:07→14:18)
[2020-09-13 06:33] LABS: Albumin 2.3 G/DL (3.4-5.0); Bilirubin,Total 0.5 MG/DL (0.2-1.0); Calcium 9.1 MG/DL (8.5-10.1); Osmolality,Calculated 289.7 MOS/KG (273-304); Potassium 4.6 MMOL/L (3.5-5.1); Total Protein 8.1 G/DL (6.4-8.3)
[2020-09-13] MEDS: SEVELAMER CARBONATE 800 MG TABLET PO SCH ×3 (09:26→17:58)
[2020-09-13] MEDS: ASPIRIN EC 81 MG TABLET PO SCH (09:26)
[2020-09-13] MEDS: METOPROLOL TARTRATE 25 MG TABLET PO SCH (09:26)
[2020-09-13] MEDS: allopurinoL 100 MG TABLET PO SCH (09:26)
[2020-09-13] MEDS: CARBOXYMETHYLCELLULOSE 1% OPH SOLN BOTH EYES SCH ×3 (09:26→17:58)
[2020-09-13] MEDS: PANTOPRAZOLE 40 MG TABLET PO SCH (09:26)
[2020-09-13] MEDS: ZINC OXIDE PASTE 113 GM TUBE TOP SCH (09:26)
[2020-09-13] MEDS: DOCUSATE SODIUM 100 MG CAPSULE PO SCH (09:26)
[2020-09-13 15:38] VITALS: BP 101/59
== END 2020-09-13 18:53 | DRG 314 ==
LOC: EDUNIT# → EDBD → N.ED 10:15 → N.EDINP 10:15 → N.2E 13:55
PROVIDERS: ADMIT Internal Medicine; ATTEND Internal Medicine

== ENCOUNTER 2020-10-31 18:00 | Observation (INO) ==
[2020-10-31] MEDS ORDERED: SODIUM CHLORIDE 0.9% 1,000 ML IV STA (22:42)
[2020-10-31] MEDS ORDERED: MORPHINE 4 MG/1 ML VIAL IV ONE (22:42)
[2020-10-31] MEDS ORDERED: ONDANSETRON 4 MG/2 ML VIAL IV STA (22:42)
[2020-10-31 23:14] LABS: Basophils % 0.4 % (0.0-0.8); Eosinophils # 0.2 10*3/uL (0.0-0.87); Eosinophils % 3.1 % (0.00-10.9); Hematocrit 23.6 VOL% (42.0-52.0); Hemoglobin 7.2 GM/DL (14.0-18.0); Immature Granulocytes % 0.7 %; Immature Granulocytes Absolute 0.05 #; Lymphocytes # 1.1 10*3/uL (1.4-4.0); Lymphocytes % 16.1 % (21.2-54.2); Mean Corpuscular HGB Conc 30.5 GM/DL (32-36); Mean Platelet Volume 9.9 FL (9.6-12.0); Monocytes % 16.6 % (1.7-12.7); Neutrophils % 63.1 % (38.7-73.9); Platelet Count 328 T/CUMM (130-400); Red Blood Count 2.51 MC/CUMM (3.8-5.5); Red Cell Distribution Width 17.2 % (9.3-17.3); White Blood Count 6.9 T/CUMM (4-12)
[2020-10-31 23:30] LABS: Albumin 2.2 G/DL (3.4-5.0); Bilirubin,Total 0.5 MG/DL (0.2-1.0); Calcium 8.7 MG/DL (8.5-10.1); Osmolality,Calculated 274.7 MOS/KG (273-304); Potassium 4.1 MMOL/L (3.5-5.1); Total Protein 7.3 G/DL (5.0-7.5)
[2020-10-31 23:38] LABS: Eosinophils 3 % (0-10); Hypochromasia 1+; Lymphocytes 13 % (20-55); Platelet Estimate Normal; Segmented Neutrophils 74 % (50-85); Total Cells Counted 100
[2020-10-31] MEDS ORDERED: cefTRIAXone 1,000 MG in SODIUM CHLORIDE 0.9% 100 ML IV STA (23:44)
[2020-11-01 00:10] LABS: Bilirubin,Urine Negative (Negative); Blood, Urine Large mg/dL (Negative); Glucose,Urine (UA) Negative (Negative); Ketones,Urine Negative (Negative); Nitrite,Urine Negative (Negative); Protein,Urine 100 MG/DL; RBC,Urine 201 /HPF (0-4); Urine Appearance CLOUDY (Clear); Urine Color Amber (Yellow); Urine Specific Gravity 1.012 (1.001-1.035); Urine Urobilinogen < 2.0 EU/DL (0.2-1.0); WBC,Urine 78 /HPF (0-6)
[2020-11-01] MEDS ORDERED: ONDANSETRON 4 MG/2 ML VIAL IV PRN (02:28)
[2020-11-01] MEDS ORDERED: ACETAMINOPHEN 325 MG TABLET PO PRN (02:28)
[2020-11-01] MEDS ORDERED: DEXTROSE 50% 25 GM/50 ML VIAL IV PRN (02:28)
[2020-11-01] MEDS ORDERED: hydrALAZINE 20 MG/1 ML VIAL IV PRN (02:28)
[2020-11-01] MEDS ORDERED: DOCUSATE SODIUM 100 MG CAPSULE PO PRN (02:28)
[2020-11-01] MEDS ORDERED: GLUCAGON 1 MG VIAL IM PRN (02:28)
[2020-11-01] MEDS ORDERED: VANCOMYCIN INJ 1,250 MG in SODIUM CHLORIDE 0.9% 250 ML IV ONE (03:00)
[2020-11-01] MEDS: MORPHINE 4 MG/1 ML VIAL IV PRN ×2 (03:46→16:57)
[2020-11-01] MEDS: PIPERACILLIN/TAZOBACTAM 3,375 MG in SODIUM CHLORIDE 0.9% 100 ML IV SCH ×2 (06:27→16:57)
[2020-11-01 06:48] LABS: Basophils % 0.3 % (0.0-0.8); Eosinophils # 0.3 10*3/uL (0.0-0.87); Eosinophils % 4.2 % (0.00-10.9); Hematocrit 23.7 VOL% (42.0-52.0); Hemoglobin 7.2 GM/DL (14.0-18.0); Immature Granulocytes % 0.3 %; Immature Granulocytes Absolute 0.02 #; Lymphocytes # 1.1 10*3/uL (1.4-4.0); Lymphocytes % 18.6 % (21.2-54.2); Mean Corpuscular HGB Conc 30.4 GM/DL (32-36); Mean Corpuscular Volume 95.2 FL (87-102); Mean Platelet Volume 9.1 FL (9.6-12.0); Monocytes % 17.6 % (1.7-12.7); Platelet Count 302 T/CUMM (130-400); Red Blood Count 2.49 MC/CUMM (3.8-5.5); Red Cell Distribution Width 17.3 % (9.3-17.3); White Blood Count 6.1 T/CUMM (4-12)
[2020-11-01 07:14] LABS: Eosinophils 3 % (0-10); Hypochromasia 1+; Lymphocytes 18 % (20-55); Microcytosis Slight; Platelet Estimate Adequate; Segmented Neutrophils 68 % (50-85); Total Cells Counted 100
[2020-11-01 07:22] LABS: Calcium 8.8 MG/DL (8.5-10.1); Osmolality,Calculated 277.5 MOS/KG (273-304); Potassium 3.8 MMOL/L (3.5-5.1)
[2020-11-01] MEDS ORDERED: VANCOMYCIN INJ 500 MG in SODIUM CHLORIDE 0.9% 100 ML IV PRN (07:52)
[2020-11-01] MEDS ORDERED: VANCOMYCIN INJ 1,250 MG in SODIUM CHLORIDE 0.9% 250 ML IV PRN (17:00)
[2020-11-02] MEDS: PIPERACILLIN/TAZOBACTAM 3,375 MG in SODIUM CHLORIDE 0.9% 100 ML IV SCH ×2 (05:13→18:45)
[2020-11-02 07:25] LABS: Basophils % 0.4 % (0.0-0.8); Eosinophils # 0.2 10*3/uL (0.0-0.87); Eosinophils % 4.3 % (0.00-10.9); Hemoglobin 7.5 GM/DL (14.0-18.0); Immature Granulocytes % 0.4 %; Immature Granulocytes Absolute 0.02 #; Lymphocytes % 18.7 % (21.2-54.2); Mean Corpuscular Volume 98.8 FL (87-102); Mean Platelet Volume 9.9 FL (9.6-12.0); Monocytes % 16.4 % (1.7-12.7); Neutrophils % 59.8 % (38.7-73.9); Platelet Count 320 T/CUMM (130-400); Red Blood Count 2.53 MC/CUMM (3.8-5.5); Red Cell Distribution Width 17.2 % (9.3-17.3); White Blood Count 5.4 T/CUMM (4-12)
[2020-11-02 07:41] LABS: Calcium 8.5 MG/DL (8.5-10.1); Osmolality,Calculated 279.5 MOS/KG (273-304); Potassium 3.9 MMOL/L (3.5-5.1)
[2020-11-02 08:42] LABS: Eosinophils 5 % (0-10); Lymphocytes 20 % (20-55); Platelet Estimate Normal; Segmented Neutrophils 56 % (50-85); Total Cells Counted 100
[2020-11-02 13:03] LABS: Hepatitis B Core IgM Quant 0.11 Index; Hepatitis B Surface Ag Quant < 0.10 Index; Hepatitis B Surface Ag Result Non-Reactive (NonReactive); Hepatitis C Virus Ab Quant > 11.00 Index; Hepatitis C Virus Ab Result Reactive (NonReactive)
[2020-11-02] MEDS: MORPHINE 4 MG/1 ML VIAL IV PRN (13:23)
[2020-11-02] MEDS ORDERED: VANCOMYCIN INJ 500 MG in SODIUM CHLORIDE 0.9% 100 ML IV ONE (17:00)
[2020-11-03] MEDS: PIPERACILLIN/TAZOBACTAM 3,375 MG in SODIUM CHLORIDE 0.9% 100 ML IV SCH ×2 (05:16→16:14)
[2020-11-03] MEDS: FERROUS SULFATE 325 MG TABLET PO SCH ×2 (09:12→20:54)
[2020-11-03 09:18] LABS: Basophils % 0.5 % (0.0-0.8); Eosinophils # 0.3 10*3/uL (0.0-0.87); Eosinophils % 4.3 % (0.00-10.9); Hematocrit 29.1 VOL% (42.0-52.0); Hemoglobin 8.8 GM/DL (14.0-18.0); Immature Granulocytes % 0.5 %; Immature Granulocytes Absolute 0.03 #; Mean Corpuscular HGB Conc 30.2 GM/DL (32-36); Mean Corpuscular Volume 96.7 FL (87-102); Mean Platelet Volume 9.3 FL (9.6-12.0); Monocytes % 18.2 % (1.7-12.7); Neutrophils % 45.5 % (38.7-73.9); Platelet Count 365 T/CUMM (130-400); Red Blood Count 3.01 MC/CUMM (3.8-5.5); Red Cell Distribution Width 17.2 % (9.3-17.3); White Blood Count 6.6 T/CUMM (4-12)
[2020-11-03 09:39] LABS: Anisocytosis 2+; Band Neutrophils 2 % (0-10); Eosinophils 4 % (0-10); Hypochromasia 1+; Lymphocytes 32 % (20-55); Macrocytosis 1+; Platelet Estimate Normal; Segmented Neutrophils 47 % (50-85); Total Cells Counted 100
[2020-11-03] MEDS ORDERED: EPOETIN ALFA-EPBX 2,000 UNIT/ML VIAL IV PRN (14:51)
[2020-11-03] MEDS: POLYETHYLENE GLYCOL POWDER 17 GM PACK PO SCH (16:14)
[2020-11-04] MEDS: PIPERACILLIN/TAZOBACTAM 3,375 MG in SODIUM CHLORIDE 0.9% 100 ML IV SCH ×2 (05:08→17:39)
[2020-11-04] MEDS: FERROUS SULFATE 325 MG TABLET PO SCH ×2 (08:56→20:12)
[2020-11-04] MEDS: POLYETHYLENE GLYCOL POWDER 17 GM PACK PO SCH (08:56)
[2020-11-04] MEDS ORDERED: POLYETHYLENE GLYCOL POWDER 17 GM PACK PO PRN (13:01)
[2020-11-05] MEDS: PIPERACILLIN/TAZOBACTAM 3,375 MG in SODIUM CHLORIDE 0.9% 100 ML IV SCH ×2 (05:22→17:48)
[2020-11-05] MEDS: FERROUS SULFATE 325 MG TABLET PO SCH ×2 (08:10→22:02)
[2020-11-05] MEDS ORDERED: VANCOMYCIN INJ 500 MG in SODIUM CHLORIDE 0.9% 100 ML IV ONE (17:00)
[2020-11-05] MEDS ORDERED: TUBERCULIN SKIN TEST 0.1 ML SYRINGE INTRADERM ONE (17:00)
[2020-11-06 04:17] LABS: Alanine Aminotransferase < 9 U/L (16-61); Albumin 2.1 G/DL (3.4-5.0); Alkaline Phosphatase 54 U/L (45-117); Aspartate Amino Transferase 17 U/L (0-37); Bilirubin,Total < 0.39 MG/DL (0.2-1.0); Blood Urea Nitrogen 15 MG/DL (7-18); Calcium 8.5 MG/DL (8.5-10.1); Carbon Dioxide 29 MMOL/L (21-32); Estimated Glom Filtration Rate 8 ML/MIN; Glucose 83 MG/DL (74-106); Osmolality,Calculated 278.4 MOS/KG (273-304); Potassium 4.2 MMOL/L (3.5-5.1); Sodium 140 MMOL/L (136-145); Total Protein 6.7 G/DL (5.0-7.5)
[2020-11-06] MEDS: PIPERACILLIN/TAZOBACTAM 3,375 MG in SODIUM CHLORIDE 0.9% 100 ML IV SCH (04:35)
[2020-11-06] MEDS: FERROUS SULFATE 325 MG TABLET PO SCH (10:26)
[2020-11-06 15:50] VITALS: BP 121/61
== END 2020-11-06 16:35 ==
LOC: N.EDINP 18:00 → N.ED 18:00 → N.3E 11-01 01:52
PROVIDERS: ADMIT Internal Medicine; ATTEND Internal Medicine